=== PATIENT | female | born 1945 | race Caucasian/White ===

== ENCOUNTER 2018-10-21 11:26 | Emergency (ER) | payer OTHER, BC ==
[2018-10-21] MEDS: ONDANSETRON (ODT) 4 MG TAB ODT (13:00)
== END 2018-10-21 14:13 | disposition home or self-care (01) ==
LOC: E/R 11:26
DX: L03.116 Cellulitis of left lower limb (principal)
CPT/HCPCS: 87070; 99283

== ENCOUNTER 2018-12-06 07:49 | Emergency (ER) | payer OTHER ==
[2018-12-06] MEDS: DEXAMETHASONE 10 MG/ML 1 ML INJ IM (10:16)
[2018-12-06] MEDS: KETOROLAC 30 MG INJ IM (10:16)
== END 2018-12-06 11:43 | disposition home or self-care (01) ==
LOC: FTE 07:49
DX: M54.32 Sciatica, left side (principal); M54.9 Dorsalgia, unspecified
CPT/HCPCS: 72100; 72125; 96372; 99285-25